=== PATIENT | male | born 1965 | race Caucasian/White ===

== ENCOUNTER → 2020-05-18 11:40 | Outpatient (BNVA) | payer BC, SELFPAY | PROVIDERS: PCP Family Medicine; Visit Provider Surgery | DX: Z01.812 Encounter for preprocedural laboratory examination (principal); Z20.828 Contact with and (suspected) exposure to other viral communicable diseases | CPT/HCPCS: 87635 ==

== ENCOUNTER 2020-05-20 06:33 | Day surgery (SDC) | payer BC, SELFPAY ==
[2020-05-18 11:55] VITALS: BMI 27.0
[2020-05-20 06:44] VITALS: BP 125/73; PULSE 63; RESP 16; TEMP 36.6; O2SAT 96
[2020-05-20] MEDS: sodium chloride 0.9% 1,000 ML 30 ML IV (07:00)
--- NOTE | 2020-05-20 08:01 | ANES.PREANE2 ---
Pre-Anesthetic Assessment Pre-Anesthetic Assessment: Height/Weight: Height 1.8 m Weight 87.997 kg Temp Pulse Resp BP Pulse Ox 97.9 F 63 16 125/73 96 05/20/20 06:44 05/20/20 06:44 05/20/20 06:44 05/20/20 06:44 05/20/20 06:44 Proposed Procedure: Operation Date: 05/20/20 07:30 Proposed Procedures p EGD/Colon 25644 R10.13(Not Applicable) - Akira Kay MD s Colonoscopy 62309 R10.9(Not Applicable) - Akira Kay MD Was Beta Rupret taken within 24 hours: Yes Last intake: Intake Last Liquid Date 05/19/20 Last Liquid Time 22:00 Last Solid Date 05/18/20 Last Solid Time 22:00 Social: Social History: No alcohol and No tobacco Exam: Pre-Anes Outpt Exam: alert, oriented x 3, clear to auscultation bilaterally and regular rate & rhythm Airway: Submandibular: WNL Cervical ROM: WNL MP: 2 Dentition: Full CV/HEM: CV/HEM: Arrythmia and HTN Comments: Dilated cardiomyopathy, LBBB--good functional status Anesthetic Plan: ASA status: 3 Anesthesia: MAC Risk of > 500 ml blood loss (7ml/kg in children): No PFSH Anesthesia PFSH: Medical History (Updated 05/05/20 @ 10:53 by Sheba Keith MD) HTN (hypertension) Hyperlipidemia LBBB (left bundle branch block) Nonischemic cardiomyopathy Surgical History (Updated 05/05/20 @ 10:08 by Sheba Keith MD) Hx of hernia repair Family History Other CAD (coronary artery disease) Diabetes Denies family history of Stroke Social History Smoking and tobacco status: current every day smoker cigars Alcohol intake: current Alcohol intake frequency: other Data Anesthesia Cardiac Studies: No Data to Display
--- NOTE | 2020-05-20 08:28 | W.PM.OPSUD ---
Surgery/Procedure H&P Update DATE OF PROCEDURE: May 20, 2020 DATE H&P PERFORMED: 05/04/20 H&P UPDATE INFORMATION: No changes to prior documentation PREOP DIAGNOSIS: Right flank pain, family history of polyps, epigastric burning PLANNED PROCEDURE: Operation Date: 05/20/20 07:30 Proposed Procedures p EGD/Colon 62310 R10.13(Not Applicable) - Akira Kay MD s Colonoscopy 01299 R10.9(Not Applicable) - Akira Kay MD
[2020-05-20 09:04] VITALS: BP 108/65; PULSE 73; RESP 18; TEMP 37.3; O2SAT 98
[2020-05-20 09:19] VITALS: BP 124/74; PULSE 62; RESP 16; TEMP 37.2; O2SAT 98
--- NOTE | 2020-05-20 12:08 | ANE.PACU2 ---
Inpatient post-anesthesia follow up: Airway intact: Yes Vital signs: Temperature 98.9 F Pulse Rate 62 Respiratory Rate 16 Blood Pressure 124/74 Pulse Oximetry 98 Oxygen Delivery Me thod Room Air Oxygen Flow Rate 2 Fraction of Inspir ed Oxygen Hydration adequate: Yes Nausea and vomiting: No Pain level: 1 Mental status: Baseline
[2020-05-24 06:59] LABS: H. Pylori / CLO Test Negative
== END 2020-05-20 09:45 | disposition home or self-care (01) ==
PROVIDERS: PCP Family Medicine; Visit Provider Surgery
PROC: 0DJ08ZZ Inspection of Upper Intestinal Tract, Via Natural or Artificial Opening Endoscopic (ICD-10-PCS; CPT 43235; principal; 2020-05-20 07:30)
PROC: 0DJD8ZZ Inspection of Lower Intestinal Tract, Via Natural or Artificial Opening Endoscopic (ICD-10-PCS; CPT 45378; 2020-05-20 07:30)
DX: R10.13 Epigastric pain (principal); Z83.71 Family history of colonic polyps; K57.30 Diverticulosis of large intestine without perforation or abscess without bleeding; K64.8 Other hemorrhoids; D12.5 Benign neoplasm of sigmoid colon; K29.80 Duodenitis without bleeding; I10 Essential (primary) hypertension; E78.5 Hyperlipidemia, unspecified; F17.290 Nicotine dependence, other tobacco product, uncomplicated; Z82.49 Family history of ischemic heart disease and other diseases of the circulatory system
CPT/HCPCS: 12345; 43239; 45385; 87077; 88305; J2704; J3490; J7030

== ENCOUNTER 2020-09-10 07:08 | Outpatient (CLI) | payer BC, SELFPAY ==
--- NOTE | 2020-09-10 07:15 | USCV_ITS ---
Landon Arita Age: 55 Gender: M : 1965 Exam Date: 09/10/2020 07:30 Ordering Phys: Sheba Keith MD ([email or web address]) Technologist: Joanna Gillis Exam Location: [facility] – [place] Indication: LBBB, palpitations BP: 121 / 73 HR: 57 Rhythm: Sinus Technical Quality: Adequate MEASUREMENTS (Male / Female) Normal Values 2D ECHO LV Diastolic Diameter PLAX 4.4 cm 4.2 - 5.9 / 3.9 - 5.3 cm LV Systolic Diameter PLAX 3.5 cm LV Chamber Size 4.7 cm IVS Diastolic Thickness 1.2 cm 0.6 - 1.0 / 0.6 - 0.9 cm IVS Systolic Thickness 1.5 cm LVPW Diastolic Thickness 1.4 cm 0.6 - 1.0 / 0.6 - 0.9 cm LVPW Systolic Thickness 1.6 cm RV Chamber Size 3.0 cm LVOT Diameter 2.0 cm LV Ejection Fraction 2D Teich 42.1 % LV Ejection Fraction MOD 2C 63.0 % LV Ejection Fraction 2C AL 62.0 % LA Diameter 3.7 cm LA Width 3.6 cm LA Height 5.0 cm RA Width 4.2 cm RA Height 4.1 cm Aorta at Sinotubular Diameter 2.8 cm M-MODE LV Diastolic Diameter MM 5.5 cm 4.2 - 5.9 / 3.9 - 5.3 cm LV Systolic Diameter MM 3.8 cm LV Ejection Fraction MM Teich 57.6 % IVS Diastolic Thickness MM 1.2 cm 0.6 - 1.0 / 0.6 - 0.9 cm IVS Systolic Thickness MM 1.6 cm LVPW Diastolic Thickness MM 1.0 cm 0.6 - 1.0 / 0.6 - 0.9 cm LVPW Systolic Thickness MM 1.7 cm RV Diastolic Diameter MM 1.2 cm Aortic Annulus Diameter 3.5 cm LA Ao Ratio MM 1.1 MV E Point Septal Separation 0.9 cm DOPPLER AV Peak Velocity 137.0 cm/s LVOT Peak Velocity 81.0 cm/s AV Area Cont Eq vti 1.8 cm squared AV Area Cont Eq pk 1.9 cm squared MV Area PHT 4.1 cm squared Mitral E to A Ratio 1.4 MV E' Velocity 40.5 cm/s Mitral E to MV E' Ratio 9.0 Mitral E to LV E' Lateral Ratio 8.1 Mitral E to LV E' Septal Ratio 10.1 TR Peak Velocity 234.8 cm/s TR Peak Gradient 22.0 mmHg TR Mean Velocity 171.0 cm/s TR Mean Gradient 13.1 mmHg TR Velocity Time Integral 64.1 cm TV Peak E Velocity 73.0 cm/s Right Atrial Pressure 3.0 mmHg Pulmonary Artery Systolic Pressu 25.0 mmHg PV Peak Velocity 55.0 cm/s RV Acceleration Time 0.1 s RV Ejection Time 0.3 s RV AcT/ET 0.3 FINDINGS Left Ventricle Normal left ventricular cavity size. Mildly increased left ventricular wall thickness. Normal left ventricular systolic function. Left ventricular ejection fraction is estimated at 50- 55 %. No regional wall motion abnormalities. Abnormal septal motion consistent with conduction abnormality. Normal diastolic function. Right Ventricle Normal right ventricular size and systolic function. Right ventricular systolic pressure 25 mmHg. Right Atrium Normal right atrial size. Right atrial pressure estimated at 3 mmHg. Left Atrium Mildly increased left atrial size. Mitral Valve Thickened mitral valve. No mitral valve stenosis. Mild mitral valve regurgitation. Aortic Valve Aortic valve not well visualized. No aortic valve stenosis. No aortic valve regurgitation. Tricuspid Valve Structurally normal tricuspid valve. No tricuspid valve stenosis. Mild tricuspid valve regurgitation. Pulmonic Valve Pulmonic valve not well visualized. Trace pulmonary valve regurgitation. Pericardium No pericardial effusion. Aorta Normal-sized aortic root. Normal-sized inferior vena cava. CONCLUSIONS 1. Normal left ventricular cavity size and systolic function. Mild concentric left ventricle hypertrophy. Left ventricular ejection fraction is estimated at 50-55 %. No regional wall motion abnormalities. Abnormal septal motion consistent with conduction abnormality. Normal diastolic function. 2. Normal right ventricular size and systolic function. 3. Pulmonary artery pressure estimated at 25 mmHg. 4. Mild tricuspid and mitral valve regurgitation. 5. Mildly increased left atrial size. 6. When compared to previous echocardiogram report dated 07/31/2014, there may not have been any significant change. Sheba Keith MD (Electronically Signed) Final Date: 13 Sep 2020 18:43 S
== END 2020-09-10 07:09 | disposition home or self-care (01) ==
PROVIDERS: PCP Family Medicine; Visit Provider Internal Medicine Cardiovascular Disease
DX: I42.8 Other cardiomyopathies (principal); R00.2 Palpitations; I08.1 Rheumatic disorders of both mitral and tricuspid valves
CPT/HCPCS: 93306

== ENCOUNTER 2024-01-04 13:19 | Outpatient (CLI) | payer BC, SELFPAY ==
--- NOTE | 2024-01-04 13:30 | USCV_ITS ---
Landon Arita Age: 58 Gender: M : 1965 Exam Date: 01/04/2024 13:46 Ordering Phys: Elliot Marques M.D ([email or web address]) Technologist: Marcell Grijalva Exam Location: [facility] – [place] Indication: heart failure BP: 142 / 72 HR: 62 Rhythm: Sinus Technical Quality: Adequate MEASUREMENTS (Male / Female) Normal Values 2D ECHO LV Diastolic Diameter PLAX 5.2 cm 4.2 - 5.9 / 3.9 - 5.3 cm IVS Diastolic Thickness 1.1 cm 0.6 - 1.0 / 0.6 - 0.9 cm IVS Systolic Thickness 1.4 cm LVPW Diastolic Thickness 1.4 cm 0.6 - 1.0 / 0.6 - 0.9 cm LVPW Systolic Thickness 2.0 cm LVOT Diameter 2.0 cm LV Ejection Fraction 2D Teich 51.2 % LV Ejection Fraction MOD 4C 38.1 % LV Ejection Fraction MOD 2C 51.1 % LV Ejection Fraction 2C AL 51.5 % LA Diameter 3.3 cm RA Systolic Volume 4C AL 63.7 ml RA Systolic Volume 4C MOD 59.6 ml LA Sys Volume AL 63.5 cm cubed LA Sys Volume Index AL 30.7 cm cubed/m squared Aorta at Sinotubular Diameter 2.4 cm IVC Diameter 1.4 cm M-MODE LA Ao Ratio MM 1.6 AV Cusp Separation MM 2.0 cm DOPPLER AV Peak Velocity 118.0 cm/s LVOT Peak Velocity 86.0 cm/s AV Area Cont Eq vti 2.3 cm squared AV Area Cont Eq pk 2.3 cm squared MV Peak Velocity 72.0 cm/s MV Area PHT 4.2 cm squared Mitral E to A Ratio 0.9 TV Peak Velocity 376.0 cm/s TR Peak Velocity 425.0 cm/s TR Peak Gradient 72.3 mmHg TR Mean Velocity 352.0 cm/s TR Mean Gradient 51.3 mmHg TR Velocity Time Integral 120.8 cm PV Peak Velocity 128.0 cm/s RV Ejection Time 0.3 s FINDINGS Left Ventricle Left ventricle is normal in size. LV systolic function is borderline low with EF of 45-50%. Septal motion is consistent with conduction abnormality. Right Ventricle Normal in size and function Right Atrium Normal in size Left Atrium Normal in size Mitral Valve Structurally normal mitral valve. Mild mitral regurgitation. Aortic Valve Structurally normal aortic valve. No significant stenosis or regurgitation. Tricuspid Valve Mild tricuspid regurgitation. RVSP is 40 to 45 mmHg. This is consistent with mild pulmonary hypertension. Pulmonic Valve Not well visualized Pericardium Normal Aorta Normal in size IVC Appears to be normal CONCLUSIONS LV systolic function is borderline normal with EF 45-50%. Septal motion is consistent with conduction abnormality Mild mitral regurgitation Mild tricuspid regurgitation Mild pulmonary hypertension Compared to prior echocardiogram from 2020, no significant changes are seen. Elliot Marques MD (Electronically Signed) Final Date: 06 January 2024 11:01 S
== END 2024-01-04 13:20 | disposition home or self-care (01) ==
LOC: RAD 13:19
PROVIDERS: PCP Family Medicine; Visit Provider Internal Medicine
DX: I07.1 Rheumatic tricuspid insufficiency (principal); I27.20 Pulmonary hypertension, unspecified; I50.9 Heart failure, unspecified; R07.9 Chest pain, unspecified; R06.02 Shortness of breath
CPT/HCPCS: 93306

== ENCOUNTER → 2024-04-10 09:46 | Outpatient (BNVA) | payer BC, SELFPAY | PROVIDERS: PCP Family Medicine; Visit Provider Family Medicine | DX: J06.9 Acute upper respiratory infection, unspecified | CPT/HCPCS: 87426 ==

== ENCOUNTER → 2024-04-25 11:13 | Outpatient (BNVA) | payer BC, SELFPAY | PROVIDERS: PCP Family Medicine; Visit Provider Family Medicine | DX: Z13.220 Encounter for screening for lipoid disorders (principal); R35.0 Frequency of micturition; Z51.81 Encounter for therapeutic drug level monitoring | CPT/HCPCS: 80053; 80061; 84153; 85025 ==